=== PATIENT | female | born 1930 | race Two or more races ===

== ENCOUNTER 2018-04-25 18:30 | Inpatient (IN) | payer OTHER ==
[~2018-04-25] VITALS: Ht 154.9 cm; Wt 61.8 kg
[2018-04-25] MEDS ORDERED: HYDR-3326 PO (18:59)
[2018-04-25] MEDS ORDERED: LEVO50TA8 PO (18:59)
[2018-04-25] MEDS ORDERED: ONDA4TAB11 PO (18:59)
[2018-04-25 19:00] VITALS: BP 147/75
--- NOTE | 2018-04-25 19:00 | NUR ---
URINE SENT, DINNER GIVEN, SBAR REPORT TO PM SHIFT.
--- NOTE | 2018-04-25 19:45 | NUR ---
No MHU bed available. Nursing coal yard supervisor made aware.
--- NOTE | 2018-04-25 20:01 | NUR ---
Pt. admitted to [id number] (Mental health overflow) , under care of Dr. Roth/Moreno Stephen. Report given to Selvin MARTIN. Belongs List completed. MRSA swab done.
[2018-04-25 20:39] VITALS: BP 147/75
[2018-04-25] MEDS ORDERED: ACETAMINOPHEN 325 MG TABLET PO PRN (20:45)
[2018-04-25] MEDS ORDERED: MAG HYDROX/AL HYDROX/SIMETH 30 ML LIQUID UDC PO PRN (20:45)
[2018-04-25] MEDS ORDERED: MAGNESIUM HYDROXIDE 30 ML LIQUID UDC PO PRN (20:45)
[2018-04-25] MEDS ORDERED: LORAZEPAM 0.5 MG TABLET PO PRN (20:45)
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
[2018-04-25] MEDS ORDERED: HYDROCODONE/APAP 5-325MG TABLET PO PRN (21:30)
[2018-04-25] MEDS: ZOLPIDEM 5 MG TABLET PO PRN (22:28)
--- NOTE | 2018-04-26 06:10 | NUR ---
PT SLEPT THROUGHOUT THE SHIFT. PT SHOWS NO SIGNS OF DISTRESS. PT COOPERATIVE WITH CARE. NO THOUGHTS OF SUICIDAL IDEATION. SITTER 1:1. SAFETY AND COMFORT PROVIDED. WILL ENDORSE ACCORDINGLY
[2018-04-26 06:15] LABS: BASOPHILS % (AUTO) 0.4 % (0.0-2.0); EOSINOPHILS # (AUTO) 0.1 K/uL (0.0-0.7); EOSINOPHILS % (AUTO) 0.9 % (0.0-7.0); HEMATOCRIT 38.2 % (31.2-41.9); HEMOGLOBIN 13.5 g/dL (10.9-14.3); LYMPHOCYTES # (AUTO) 1.1 K/uL (20.0-40.0); LYMPHOCYTES % (AUTO) 17.5 % (20.5-51.5); MEAN CORPUSCULAR HEMOGLOBIN 33.6 uug (24.7-32.8); MEAN CORPUSCULAR HGB CONC 35 g/dL (32.3-35.6); MEAN CORPUSCULAR VOLUME 94.8 fL (75.5-95.3); MONOCYTES # (AUTO) 0.8 K/uL (2.0-10.0); MONOCYTES % (AUTO) 11.6 % (0.0-11.0); NEUTROPHILS # (AUTO) 4.5 K/uL (1.8-8.9); NEUTROPHILS % (AUTO) 69.6 % (38.5-71.5); PLATELET COUNT (AUTO) 158 K/uL (179-408); RED BLOOD CELL COUNT(AUTO) 4.03 MIL/uL (3.63-4.92); WHITE BLOOD COUNT (AUTO) 6.5 K/uL (3.8-11.8)
[2018-04-26] MEDS: LEVOTHYROXINE SODIUM 50 MCG TABLET PO SCH (06:31)
[2018-04-26 06:38] LABS: THYROID STIMULATING HORMONE 4.226 mIU/mL (0.358-3.740)
[2018-04-26 07:00] LABS: ALANINE AMINOTRANSFERASE 21 U/L (14-59); ALKALINE PHOSPHATASE 88 U/L (50-136); ASPARTATE AMINOTRANSFERASE 18 U/L (15-37); BILIRUBIN,TOTAL 0.8 mg/dL (0.2-1.0); CARBON DIOXIDE 26 mmol/L (21-32); CHLORIDE 107 mmol/L (98-107); CREATININE 0.8 mg/dL (0.6-1.3); GLUCOSE 95 mg/dL (74-106); PHOSPHOROUS 3.8 mg/dL (2.5-4.9); POTASSIUM 3.5 mmol/L (3.5-5.1); TOTAL PROTEIN, SERUM 6.4 g/dL (6.4-8.2); UREA NITROGEN, BLOOD 17 mg/dL (7-18)
[2018-04-26 10:10] VITALS: BP 146/71
[2018-04-26 15:41] VITALS: BP 170/70
[2018-04-26 20:25] VITALS: BP 157/72
[2018-04-26] MEDS ORDERED: QUETIAPINE FUMARATE 25 MG TABLET PO SCH (21:00)
[2018-04-26] MEDS: ZOLPIDEM 5 MG TABLET PO PRN (21:30)
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
[2018-04-26] MEDS ORDERED: CLONIDINE HCL 0.1 MG TABLET PO PRN (22:45)
--- NOTE | 2018-04-27 06:00 | NUR ---
slept 7 hours.
[2018-04-27] MEDS: LEVOTHYROXINE SODIUM 50 MCG TABLET PO SCH (06:59)
[2018-04-27 08:00] VITALS: BP 145/81
[2018-04-27] MEDS: AMLODIPINE 5 MG TABLET PO SCH (08:06)
[2018-04-27] MEDS: VENLAFAXINE XR 75 MG CAP.SR.24H PO SCH (08:06)
[2018-04-27 16:00] VITALS: BP 151/68
[2018-04-27 20:00] VITALS: BP 156/60
[2018-04-27] MEDS: QUETIAPINE FUMARATE 25 MG TABLET PO SCH (20:50)
--- NOTE | 2018-04-27 22:24 | NUR ---
PRN ativan given for anxiety.
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
--- NOTE | 2018-04-27 23:30 | NUR ---
appears to be asleep. no distress noted.
--- NOTE | 2018-04-28 06:00 | NUR ---
slept 7.0 hours.
[2018-04-28] MEDS: LEVOTHYROXINE SODIUM 50 MCG TABLET PO SCH (06:25)
[2018-04-28 07:30] VITALS: BP 151/64
[2018-04-28] MEDS: VENLAFAXINE XR 75 MG CAP.SR.24H PO SCH (08:40)
[2018-04-28] MEDS: AMLODIPINE 5 MG TABLET PO SCH (08:41)
--- NOTE | 2018-04-28 10:45 | NUR ---
UR Note: CEM faxed clinicals to ROB Gutierres at [facility] [[phone] ]. CEM spoke to Nenita who stated patient is currently authorized with review due Tuesday 05/01. Tracking #[id number]
--- NOTE | 2018-04-28 11:41 | NUR ---
Initial DC Plan: Patient currently lives at home with her daughter Nicole [[id number] [place] [address]; [phone]]. Patient stated she would like to return home upon discharge. SW will follow up with MD, patient, and patient's daughter to discuss most appropriate discharge plans. SW will form a safe and proper discharge.
--- NOTE | 2018-04-28 14:35 | NUR ---
Called pt's daughter Arin ,pt did return the ring to Arin.
[2018-04-28 15:00] VITALS: BP 144/76
[2018-04-28 20:00] VITALS: BP 143/69
[2018-04-28] MEDS: QUETIAPINE FUMARATE 25 MG TABLET PO SCH (20:07)
--- NOTE | 2018-04-28 22:00 | NUR ---
received to care , lying in bed, isolative, but pleasant upon approach. no interactions noted with peers. as of 2199, she appears to be asleep. no distress noted. will continue to monitor closely.
[2018-04-29] MEDS: LEVOTHYROXINE SODIUM 50 MCG TABLET PO SCH (06:38)
[2018-04-29 07:30] VITALS: BP 165/73
[2018-04-29] MEDS: AMLODIPINE 5 MG TABLET PO SCH (08:10)
[2018-04-29] MEDS: VENLAFAXINE XR 75 MG CAP.SR.24H PO SCH (08:10)
[2018-04-29 16:00] VITALS: BP 147/70
[2018-04-29 16:14] VITALS: BP 175/79
--- NOTE | 2018-04-29 16:25 | NUR ---
nurse notes: Received patient from MHU with no SOB or distress via wheelchair accompanied by RN and PROCESS ENGINEERING INTERN. Patient oriented to the room. Will do frequent visual checks and initiate safety precautions. Will continue to monitor.
[2018-04-29 18:26] VITALS: BP 144/72
--- NOTE | 2018-04-29 18:27 | NUR ---
Nurse Notes: Patient remained stable with no acute changes noted. no changes in LOC or mentation. Alert and oriented, remained calm and cooperative.Denies any pain or discomforts. No SOB or distress. Frequent visual checks done. Able to ambulate to the bathroom using FWW with steady gait. safety precautions observed. hourly rounding done. Will endorse accordingly to incoming shift for continuity of care.
--- NOTE | 2018-04-29 19:10 | NUR ---
RECEIVED PT AWAKE, ALERT, AND ORIENTEDX3. PT PLEASANT UPON APPROACH. PT SHOWS NO SIGNS OF DISTRESS. CALL LIGHT WITHIN REACH. BED ALARM ON, LOW POSITION,AND SIDE RAILS UPX2. WILL CONTINUE TO MONITOR.
[2018-04-29 20:00] VITALS: BP 130/69
--- NOTE | 2018-04-29 20:30 | NUR ---
PT RECEIVED A CALL FROM MATT. PT SHOWS NO SIGNS OF DISTRESS. WILL CONTINUE TO MONITOR.
[2018-04-29] MEDS: QUETIAPINE FUMARATE 25 MG TABLET PO SCH (21:21)
[2018-04-30] MEDS: LEVOTHYROXINE SODIUM 50 MCG TABLET PO SCH (06:30)
--- NOTE | 2018-04-30 06:36 | NUR ---
PT SLEPT THROUGHOUT THE SHIFT. PT SHOWS NO SIGNS OF DISTRESS. PT PLEASANT WHEN APPROACHED. PT COOPERATIVE WITH CARE. PRESCRIBED MEDICATION GIVEN AND PT TOLERATED IT WELL.SAFETY AND COMFORT PROVIDED. WILL ENDORSE ACCORDINGLY TO INCOMING NURSE FOR CONTINUITY OF CARE.
--- NOTE | 2018-04-30 07:15 | NUR ---
Received report from night order selector nurse, patient ambulated to bathroom with walker, unsteady. Returned patient back to bed, bed alarm set, no distress noted at his time. Bed in low position, side rails up x2.
[2018-04-30] MEDS: VENLAFAXINE XR 75 MG CAP.SR.24H PO SCH (08:50)
[2018-04-30] MEDS: AMLODIPINE 5 MG TABLET PO SCH (08:52)
[2018-04-30 11:22] VITALS: BP 132/61
[2018-04-30 16:30] VITALS: BP 159/74
--- NOTE | 2018-04-30 17:43 | NUR ---
Patient has been cooperative with care, no distress throughout the shift. Patient showered without incident, no distress noted at this time, bed in low position, side rails up x2. Call light within reach.
--- NOTE | 2018-04-30 19:15 | NUR ---
RECEIVED PT AWAKE, ALERT, AND ORIENTEDX3. PT SHOWS NO SIGNS OF DISTRESS. PLEASANT WHEN APPROACHED. PT INTERACTS. NO SIGNS OF SUICIDAL IDEATION. SAFETY PROVIDED. WILL CONTINUE TO MONITOR.
[2018-04-30] MEDS: QUETIAPINE FUMARATE 25 MG TABLET PO SCH (20:04)
[2018-04-30 20:27] VITALS: BP 132/72
--- NOTE | 2018-05-01 06:15 | NUR ---
PT SLEPT THROUGHOUT THE SHIFT. PT SHOWS NO SIGNS OF DISTRESS.PRESCRIBED MEDICATION GIVEN AND PT TOLERATED IT WELL.PT PLEASANT WHEN APPROACH. COOPERATIVE WITH CARE. CALL LIGHT WITHIN REACH. BED ALARM ON. SAFETY AND COMFORT PROVIDED. WILL ENDORSE ACCORDINGLY FOR CONTINUITY OF CARE.
[2018-05-01] MEDS: LEVOTHYROXINE SODIUM 50 MCG TABLET PO SCH (06:32)
--- NOTE | 2018-05-01 07:15 | NUR ---
RECEIVED REPORT FROM MUSIC EDUCATION ADJUNCT PROFESSOR NURSE, PATIENT IN BED AWAKE, NO DISTRESS NOTED AT THIS TIME, BED IN LOW POSITION, SIDE RAILS UP X2.
[2018-05-01] MEDS: VENLAFAXINE XR 75 MG CAP.SR.24H PO SCH (08:39)
[2018-05-01] MEDS: AMLODIPINE 5 MG TABLET PO SCH (08:40)
[2018-05-01 11:47] VITALS: BP 150/73
[2018-05-01 15:44] VITALS: BP 150/66
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
[2018-05-01 20:00] VITALS: BP 146/77
[2018-05-01] MEDS: QUETIAPINE FUMARATE 25 MG TABLET PO SCH (20:58)
--- NOTE | 2018-05-02 06:05 | NUR ---
PT SLEPT THROUGHOUT THE SHIFT. PT SHOWS NO SIGNS OF DISTRESS. PRESCRIBED MEDICATION GIVEN AND PT TOLERATED IT WELL.CALL LIGHT WITHIN REACH.SAFETY AND COMFORT PROVIDED. WILL ENDORSE ACCORDINGLY FOR CONTINUITY OF CARE.
[2018-05-02] MEDS: LEVOTHYROXINE SODIUM 50 MCG TABLET PO SCH (06:41)
--- NOTE | 2018-05-02 07:15 | NUR ---
Received report from custom ski maker nurse, patient in bed ambulating to restroom. No distress noted at this time.
[2018-05-02 08:04] VITALS: BP 143/76
--- NOTE | 2018-05-02 08:16 | NUR ---
DC Note: Patient will be discharged home [[id number] [place] [address]; [phone]] via private transportation. Patient's friend Lizabeth Rodriguez [[phone]] stated she will pick up man patient around 12:30pm. CEM spoke to patient's daughter Nicole [[phone]] who is aware and agreeable to discharge plans. Patient is aware and agreeable to discharge plans and denies SI and HI. Patient will follow up with psychiatrist Dr. Fernandez at his outpatient clinic [[address]. [place], [place]; [phone]] and drag out man Dr. Vallejo [[address] [place] [address]; ]. Patient will also follow up with therapist Allison Leon [[phone]]. CEM faxed a home health order to Yudith at [facility] [[phone] Ext. [phone]]. Per Yudith, patient's insurance group [employer] will arrange home health directly with patient upon discharge. Patient was provided caregiving referrals for [facility] [[phone]] and [facility] [[phone]]. Patient was also referred to placement agency [facility] [[phone]].
[2018-05-02] MEDS: VENLAFAXINE XR 75 MG CAP.SR.24H PO SCH (08:32)
[2018-05-02 08:34] VITALS: BP 119/57
[2018-05-02] MEDS: AMLODIPINE 5 MG TABLET PO SCH (08:34)
--- NOTE | 2018-05-02 12:00 | NUR ---
Patient gave consent to release medication information from [facility].
--- NOTE | 2018-05-02 13:35 | NUR ---
Patient was given discharge instructions, consulted by pharmacist, and given a follow up appointment with primary care doctor on May 15, at 1100am. Patient escorted down to oyster picker area where she was met by caregiver/friend. Patient is discharged.
== END 2018-05-02 13:35 | disposition home health service (06) | DRG 885 ==
LOC: ER 18:31 → GPSOV 19:58 → GPS 04-26 06:27 → GPSOV 04-29 16:23
PROVIDERS: ADMIT Psychiatry & Neurology Psychiatry; ATTEND Internal Medicine
DX: F33.2 Major depressive disorder, recurrent severe without psychotic features (principal); E03.9 Hypothyroidism, unspecified; I70.0 Atherosclerosis of aorta; I10 Essential (primary) hypertension; Z79.899 Other long term (current) drug therapy; Z88.6 Allergy status to analgesic agent
CPT/HCPCS: 36415; 71045; 82306; 83735; 84100; 84443; 85025; 93005; A4663